=== PATIENT | female | born 1940 ===

== ENCOUNTER → 2017-06-22 | Outpatient (CLI) | payer MEDICARE, MEDICAID ==
[2014-06-19 10:36] VITALS: BMI 33.2
[~2017-06-22] MED LIST: ACET-1966 PO; ACET-2031 PO; ACET-2043 PO; AMLO-99 PO; AMOX-559 PO; ASPI-757 PO; ASPI81TA86 PO; ASPI81TA94 PO; ATOR20TA65 PO; ATR80PT PO; Aspirin PO; BISA-229 PO; BISA-236 RC; BLOO-1318 MC; CALC-488 PO; CALC-515 PO; CALC-521 PO; CALC-630 PO; CHOL10005 PO; CHOL500045 PO; CIN30PT PO; CITA-137 PO; CYAN100088 PO; DEXT1DRO15 OP; DONE10TA89 PO; FENO135C PO; FES4PT PO; FESO8PT PO; GLIM1TAB25 PO; GLIM4TAB50 PO; HYDR-2966 PO; HYDR12.556 PO; HYDR25SU51 RC; IBUP-56 PO; LANC-1149 MC; LANI SUBQ; LISI-374 PO; LOPE1TAB55 PO; LOPE2CAP88 PO; MAG-66 PO; MEMA5TAB14 PO; METF-409 PO; METF-410 PO; METO100T20 PO; METO50TA19 PO; MOM PO; NA P133E21 RC; NITR-105 PO; OMEG-23 PO; OSEL30CA2 PO; PRAV20TA65 PO; [UNRECOGNIZED DRUG - CODE] PO; [UNRECOGNIZED DRUG - CODE] PO
== END ==
LOC: ZZSPRING 09:02
PROVIDERS: ATTEND Emergency Medicine
DX: E55.9 Vitamin D deficiency, unspecified (principal)
CPT/HCPCS: 36415; 82306

== ENCOUNTER → 2017-07-20 | Outpatient (CLI) | payer MEDICARE, MEDICAID ==
[2014-06-19 10:36] VITALS: BMI 33.2
[~2017-07-20] MED LIST changes: +ALEN70TA43 PO; +FERR324T16 PO; +GOLYTE PO
[2017-07-20 10:04] LABS: PLATELET COUNT, AUTOMATED 520 K/uL (150-450)
== END ==
LOC: LAB 09:44
PROVIDERS: ATTEND Emergency Medicine
DX: D72.829 Elevated white blood cell count, unspecified (principal); D64.9 Anemia, unspecified; D68.59 Other primary thrombophilia
CPT/HCPCS: 36415; 82040; 82247; 82310; 82374; 82435; 82565; 82947; 84075; 84132; 84155; 84295; 84450; 84460; 84520; 85007; 85027; 86140

== ENCOUNTER 2017-08-10 02:41 | Day surgery (SDC) | payer MEDICARE, MEDICAID ==
[2014-06-19 10:36] VITALS: Ht 166.4 cm; Wt 83.0 kg
[~2017-08-10] VITALS: Ht 166.4 cm; Wt 83.0 kg
[2017-08-10 07:00] VITALS: BP 127/57
[2017-08-10] MEDS ORDERED: LIDOCAINE/SOD BICARB 8.4% SYR ID ONE (07:10)
[2017-08-10] MEDS ORDERED: NORMOSOL R SOLN(*) 1000 ML BAG 1,000 ML IV PRN (07:10)
[2017-08-10] MEDS ORDERED: MIDAZOLAM 2 MG/2 ML VIAL IVP PRN (07:10)
[2017-08-10] MEDS ORDERED: LIDOCAINE/SOD BICARB 8.4% SYR ONE (07:54)
[2017-08-10 09:28] VITALS: BP 107/49
--- NOTE | 2017-08-10 09:40 | Short(Outpt) Discharge Summary ---
Discharge Summary Reason for Hosp/Final Diag: (1) Anemia Status: Chronic Hospital Course & Plan: EGD with biopsies and colonoscopy with biopsies of transverse colon mass (suspicious for adenocarcinoma) and polypectomy x3 completed without problems. (2) Occult blood in stools Status: Chronic Departure Discharge to: Assisted Living Discharge Instructions Home Meds Active Scripts Alendronate Sodium (FOSAMAX) 70 Mg Tablet, 70 MG PO QWK, #15 TAB 3 Refills Prov:LASHANDA CHUN MD 07/21/17 Ferrous Sulfate (FERROUS SULFATE) 324 Mg Tablet.dr, 324 MG PO QDAY, #90 TAB Prov:LASHANDA CHUN MD 07/21/17 Peg/Electrolytes (GOLYTELY SOLUTION) 4,000 Ml Soln, 1 GAL PO ONCE, #1 GAL 0 Refills Prov:PATRICIA ORELLANA MD 07/05/17 Memantine Hcl 5 Mg (NAMENDA 5 MG) 5 Mg Tablet, 2 TAB PO BID, #120 TAB 11 Refills 5 mg daily for a wk, 5 mg twice a day for wk 2,then 2 in morning, 1 in evening wk 3, then 2 tabs twice daily after that. Prov:LASHANDA CHUN MD 06/21/17 Fesoterodine Fumarate (TOVIAZ) 8 Mg Tabsr, 8 MG PO DAILY, #30 TAB 11 Refills Prov:LASHANDA CHUN MD 05/25/17 Pravastatin Sodium (PRAVACHOL) 20 Mg Tablet, 20 MG PO QDAY, #30 TAB 11 Refills Prov:LASHANDA CHUN MD 12/02/16 Amlodipine Besylate (AMLODIPINE BESYLATE) 10 Mg Tablet, 1 TAB PO QDAY, #30 TAB 11 Refills Prov:LASHANDA CHUN MD 12/02/16 Cinacalcet Hcl (SENSIPAR) 30 Mg Tablet, 1-2 TAB PO BID, #90 TAB 10 Refills Take 2 tabs po qam and 1 tab po qpm Prov:LASHANDA CHUN MD 11/09/16 Lisinopril (LISINOPRIL) 40 Mg Tablet, 1 TAB PO QDAY, #90 TAB 3 Refills Prov:LASHANDA CHUN MD 05/25/16 Reported Medications Calcium Carbonate (TUMS) 200 Mg Tab.chew, 200 MG PO PRN, TAB.CHEW 07/06/17 Aspirin (ASPIRIN EC) 81 Mg Tablet.dr, 81 MG PO QDAY, TAB 08/03/16 Magnesium Hydroxide (MILK OF MAGNESIA) 400 Mg/5 Ml Oral.susp, 15-30 MG PO PRN Y for CONSTIPATION, BOTTLE 05/24/16 Loperamide Hcl (LOPERAMIDE) 2 Mg Capsule, 2 CAP PO PRN, CAPSULE 05/24/16 Ibuprofen (IBUPROFEN) 200 Mg Tablet, 1 TAB PO Q4-6H Y for PAIN, TAB 05/24/16 Acetaminophen (TYLENOL) 325 Mg Tablet, 1-2 TAB PO Q4H Y for PAIN, TAB 05/24/16 Cholecalciferol (Vitamin D3) (VITAMIN D3) 1,000 Unit Tablet, 2 TAB PO DAILY, TAB 05/24/16 Dextran 70/Hypromellose (ARTIFICIAL TEARS) 1 Each Droperette, 1 DROP OP TID 05/24/16 Acetaminophen (ACETAMINOPHEN) 500 Mg Tablet, 1 TAB PO TID, TAB 05/24/16 Donepezil Hcl (ARICEPT) 10 Mg Tablet, 1 TAB PO QDAY, TAB 06/13/14 Follow up Referrals: General Surgery - 08/22/17 @ Surgery, General with Patricia Orellana Md You have a follow up appointment scheduled with Dr. Orellana on 08/22/17, at 11:00. Diet: Regular Activity: As Tolerated Problem Qualifiers (1) Anemia: Anemia type: unspecified type Qualified Codes: D64.9 - Anemia, unspecified PATRICIA ORELLANA MD Aug 10, 2017 09:40
[2017-08-10 09:43] VITALS: BP 112/55
[2017-08-10 10:11] VITALS: BP 139/58
[2017-08-10 10:20] VITALS: BP 176/71
[2017-08-10 10:22] VITALS: BP 165/67
== END 2017-08-10 10:48 | disposition home or self-care (01) ==
LOC: OR 02:41
PROVIDERS: ATTEND Surgery
DX: C18.4 Malignant neoplasm of transverse colon (principal); K29.70 Gastritis, unspecified, without bleeding; K44.9 Diaphragmatic hernia without obstruction or gangrene; D12.3 Benign neoplasm of transverse colon
CPT/HCPCS: 87077; 88305; 88344

== ENCOUNTER → 2017-08-16 | Outpatient (CLI) | payer MEDICARE, MEDICAID ==
[2014-06-19 10:36] VITALS: BMI 33.2
== END ==
LOC: ZZSPRING 08-15 11:46
PROVIDERS: ATTEND Surgery
DX: E11.9 Type 2 diabetes mellitus without complications (principal); C18.9 Malignant neoplasm of colon, unspecified
CPT/HCPCS: 36415; 82040; 82247; 82248; 82310; 82374; 82378; 82435; 82565; 82947; 84075; 84132; 84155; 84295; 84450; 84460; 84520; 85027

== ENCOUNTER → 2017-08-18 | Outpatient (CLI) | payer MEDICARE, MEDICAID ==
[2014-06-19 10:36] VITALS: BMI 33.2
[~2017-08-18] MED LIST changes: +IOPAMIDOL 76% 75 ML INFUS BTL 75 ML ONE
--- NOTE | 2017-08-18 14:52 | RADIOLOGY IMAGING REPORT ---
FACILITY: [facility] PATIENT NAME: Nikki Yuen : 1940 MR: [id number] V: [id number] EXAM DATE: ORDERING PHYSICIAN: PATRICIA ORELLANA TECHNOLOGIST: Location: [facility] - [place] Patient: Nikki Yuen : 1940 Visit/Account:[id number] Date of Sevice: 08/18/2017 CHEST/AB/PELV W/CONTRAST HISTORY: Colon cancer follow-up, type II diabetes ADDITIONAL HISTORY: None. TECHNIQUE: Pre and post administration of IV contrast axial images acquired through the chest abdome n and pelvis during the portal venous phase. Coronal and sagittal reformatting was also performed. Dose Lowering Technique One of the following dose optimization techniques was utilized in the performance of this exam: Autom ated exposure control; adjustment of the mA and/or kV according to the patient's size; or use of an i terative reconstruction technique. Specific details can be referenced in the facility's radiology C T exam operational policy. CONTRAST: 75 mL [id number] COMPARISON: None. FINDINGS: CHEST: Lungs/Pleura: There are reticular nodular changes in the lower lung martines which could be chronic in nature Mediastinum/lymph nodes: Negative. Heart/vessels: There is trace pericardial fluid. There are moderate coronary artery calcifications and mild to moderate calcifications at the aortic arch Bones/soft tissues: There are bilateral thyroid nodules the largest is in the left lobe measuring ap proximately 4.5 cm in diameter with substernal extension ABDOMEN AND PELVIS: Hepatobiliary: There are postsurgical changes from a cholecystectomy. There Is a subcentimeter hypo density along the dome of the liver which is too small to characterize . Calcified granulomas Spleen: Negative. Pancreas: Negative. Adrenals: There is a 1 cm left adrenal nodule and a 1.1 cm right adrenal nodule Kidneys ureters and bladder : There is a heterogeneous enhancing mass projecting from the lateral cor liliana of the right kidney measuring 4.4 x 3.5 x 3.8 cm is a 1.4 cm cyst lower pole the right kidney. T here are additional hypoattenuating lesions in the kidney that are too small to characterize are mult iple heterogeneous partially enhancing masses in the left kidney. In the left upper pole there is a 8.5 x 7.2 x 9.4 cm mass with a hypoattenuating central region. In the mid left pole there is a 5 x 4 .8 x 5.9 cm heterogeneous partially enhancing mass. In the anterior midpole there is a 2.8 x 3.6 x 3 cm heterogeneous partially enhancing mass is a 3.3 cm cyst projecting from the lower pole the left k idney. In the anterior superior pole there is a 1.7 x 1.5 x 1.5 cm indeterminate hypoattenuating mas s with CT Hounsfield units of 33 there is no evidence of hydronephrosis or hydroureter There are add itional hypoattenuating lesions that are too small to characterize Genitalia: The left adnexa there is a 2.1 cm cyst possibly ovarian in origin. There appears to been a hysterectomy GI: There is a mild to moderate amount of fecal material in the colon which can be seen with consti pation. No evidence of bowel obstruction. There is a moderate size hiatal hernia Vessels/spaces/nodes: There are mild to moderate vascular calcifications present Bones/soft tissues: There Is a left hip arthroplasty producing numerous streak artifacts. There are mild spondylotic changes in the thoracic spine. No aggressive appearing bone lesions are seen there is a small umbilical hernia containing fat Additional findings: None pertinent. IMPRESSION: There are multiple bilateral heterogeneous enhancing masses in both kidneys concerning for primary re nal malignancy. There are bilateral thyroid nodules the largest is on the left measuring approximately 4.5 cm in diam eter. Thyroid ultrasound recommended Postsurgical changes from a cholecystectomy and hysterectomy. There is a subcentimeter hypodensity along the dome of the liver which is too small to characterize Bilateral adrenal nodules 2.1 cm cys left adnexa Moderate size hiatal hernia Additional chronic findings as described Report Dictated By: Marium Chicas MD at 08/18/2017 2:28 PM Report E-Signed By: Marium Chicas MD at 08/18/2017 2:48 PMWSN:[id number]
== END ==
LOC: CT 00:45
PROVIDERS: ATTEND Surgery
DX: N28.89 Other specified disorders of kidney and ureter (principal); E04.9 Nontoxic goiter, unspecified; Z90.49 Acquired absence of other specified parts of digestive tract; Z90.79 Acquired absence of other genital organ(s)
CPT/HCPCS: 71260; 74177; Q9967